=== PATIENT | female | born 1955 | race Caucasian/White ===

== ENCOUNTER 2019-03-25 11:00 | Observation (INO) | payer OTHER, SELFPAY ==
[2019-03-23 08:08] VITALS: BMI 24.5
[2019-03-24] VITALS (15 sets, daily range): BP systolic 87–116; BP diastolic 54–75; PULSE 65–103; RESP 11–20; TEMP 36.2–36.8; O2SAT 94–100; BMI 23.8; BMI 24.5
--- NOTE | 2019-03-24 | PATH_ITS ---
[facility] Accession Number: [id number] . 01 Material submitted: . uterus - UTERUS, CERVIX, BILATERAL FALLOPIAN TUBES AND OVARIES . 02 Diagnosis: Uterus, Cervix, Bilateral Fallopian Tubes and Ovaries, Hysterectomy and Bilateral Salpingo-oophorectomy (Weight 118 grams) and Multiple Detached Nodules (Weight 30 grams): Cervix with no significant histomorphologic abnormality. Endocervix with no significant histomorphologic abnormality. Endometrium with cystic atrophy; negative for glandular hyperplasia, cytologic atypia, and malignancy. Myometrium with multiple intramural leiomyomas (0.3-2.5 cm in greatest dimension) and separate leiomyomas (6.5 cm in aggregate dimension); negative for cytologic atypia or malignancy. Uterine serosa with minute foci of possible involvement by endometriosis. Ovary #1 with no significant histomorphologic abnormality. Ovary #2 with a minute focus of possible involvement by endometriosis and otherwise no significant histomorphologic abnormality. Fallopian tube #1 with small, benign paratubal cysts (1-2 mm in greatest dimension). Fallopian tube #2 with a minute focus of possible involvement by endometriosis and otherwise no significant histomorphologic abnormality. V 03/28/2019 1559 Local . 02 Electronically signed: . Lelia Raman MD, Pathologist NPI- [id number] . 01 Gross description: . Received in formalin, labeled uterus, cervix, bilateral fallopian tubes and ovaries, is a uterus in two pieces (118 grams, 5.2 cm AP, 13.3 cm SI, 7.4 cm ML) with attached ovaries (ovary #1-1.7 x 0.8 x 0.5 cm; ovary #2-2.5 x 1.1 x 0.7 cm) and attached fimbriated fallopian tubes (tube #1: length-4.8 cm, diameter-0.5 cm; tube #2: length-5.1 cm, diameter-0.5 cm) and multiple separate solid firm nodules (30 grams, 6.5 x 5.5 x 2.9 cm in aggregate). The specimen cannot be oriented as to anterior and posterior. The cervix (2.4 cm AP, 2.9 cm ML) has a vaginal cuff (up to 2.2 cm in depth), transverse os and patent endocervical canal. The endometrium (average thickness-0.1 cm) is johnson smooth and flat. The myometrium (thickness-3.1 cm) is johnson-white and contains multiple solid firm white whorled well-circumscribed homogeneous nodules (0.3 x 0.2 x 0.1 cm-2.5 x 2.3 x 1.5 cm). The serosa is pale johnson smooth and shiny. The ovaries have johnson-yellow smooth dull serosa and johnson-white solid parenchyma with corpus albicans identified. The fallopian tubes have johnson-pink smooth shiny serosa and johnson unremarkable lumens. The separate nodules have the same characteristics as the nodules identified in the myometrium. 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 ([id number]) /MRV 03/28/2019 1437 Local . 02 Pathologist provided ICD-10: D25.9 . 02 CPT . 255551 Performed at: 01 [facility] [address] [id number] MD Torrey Pardo MD Phone: [phone] Performed at: 02 [facility] [address] [place], [place] [id number] MD Roxana Cowart MD Phone: [phone]
[2019-03-24] MEDS: LACTATED RINGERS 1,000 ML 42 ML IV (07:26)
--- NOTE | 2019-03-24 07:37 | PM.HP.1 ---
History of Present Illness History of Present Illness Date Patient Seen: 03/24/19 Time Patient Seen: 07:38 Chief complaint: [id number] *OPB* Narrative: Patient is a 64-year-old with uterine prolapse, cystocele, and rectocele She is here for a laparoscopic-assisted vaginal hysterectomy, anterior and posterior repair Patient History Medical History (Updated 03/23/19 @ 12:37 by Olga Fuller RN) Constipation (Acute) Depression (Chronic ~2014) Hearing loss (Chronic ~2016) History of recurrent ear infection (Resolved) Sinus drainage (Acute) Uterine prolapse (Chronic ~2018) Vision disorder (Chronic) Surgical History (Updated 03/23/19 @ 12:37 by Olga Fuller RN) Anesthesia (Resolved) History of ear surgery (Resolved ~1967) History of surgery (Acute ~2016) History of tonsillectomy and adenoidectomy (Resolved ~1966) Schwannoma (Resolved ~11/2016) Family History (Updated 02/01/19 @ 21:00 by Basia Hayes) Father Diabetes mellitus History of heart disease Hypertension Stroke Hip fracture Mother History of heart disease Hypertension Mental health problem Sister Mental health problem Sister Mental health problem Grandfather History of heart disease Grandmother History of heart disease Hypertension Hyperlipidemia Mental health problem Grandfather Liver cancer Grandmother Parkinson's disease Social History household members: spouse Smoking Status: Former smoker alcohol intake: current Family & Social History Family History (Updated 02/01/19 @ 21:00 by Basia Hayes) Father Diabetes mellitus History of heart disease Hypertension Stroke Hip fracture Mother History of heart disease Hypertension Mental health problem Sister Mental health problem Sister Mental health problem Grandfather History of heart disease Grandmother History of heart disease Hypertension Hyperlipidemia Mental health problem Grandfather Liver cancer Grandmother Parkinson's disease Social History: household members spouse Tobacco & Substance use: Tobacco type cigarettes Smoking Status Former smoker alcohol intake current Substance Use Type does not use Meds Home Medications and Allergies Home Medications Medication Instructions Recorded Confirmed Type estradiol [Estrace] 0.5 gram VAG SEEINSTR 03/24/19 03/24/19 History Allergies Allergy/AdvReac Type Severity Reaction Status Date / Time No Known Drug Allergies Allergy Verified 03/24/19 07:05 Exam Vital Signs (past 8 hours): - 03/24/19 07:11 Temperature 97.5 F L Pulse Rate 65 Respiratory Rate 14 Blood Pressure 103/64 Pulse Oximetry 100 Oxygen Delivery Method Room Air Narrative Exam Narrative: HEENT: No thyromegaly, no anterior cervical or supraclavicular lymphadenopathy. Lungs:Clear to auscultation bilaterally, no wheezes. Cardiovascular: Regular rate and rhythm, no murmurs, rubs, or gallops. Abdomen: No scars. No hepatosplenomegaly. No masses palpable. External genitalia: Normal Vagina: Cystocele and rectocele Cervix: Prolapse Bimanual exam: [6 week size prolapsed uterus. No adnexal masses or tenderness. Rectal: Rectocele Assessment & Plan Assessment & Plan narrative: Assessment: 64-year-old with uterine prolapse, cystocele, and rectocele Plan: Laparoscopic-assisted vaginal hysterectomy, bilateral salpingo-oophorectomy, anterior and posterior repair The risks, benefits, and alternatives to the procedure were explained to the patient. The risks including bleeding, infection, injury to the bowel, bladder, ureters, urethra, and rectum. She understands these risks and agrees to proceed. A full par Q was held and consent form was signed. Time Spent With Patient Time with patient: 15-24 minutes
--- NOTE | 2019-03-24 07:40 | PM.PREOP ---
Pre-operative Note Interval Note History & Physical reviewed/Exam performed by Physician: Yes Changes to H&P: No
[2019-03-24] MEDS: CEFAZOLIN 2 GM/100 ML FROZ.PIGGY IV (08:14)
--- NOTE | 2019-03-24 08:44 | SUR.OPER ---
Lithotomy on padded OR bed. [place] Mel Pad Positioner under torso. Head on pillow, arms padded and tucked at sides. Legs secured in padded yellow fins stirrups.
[2019-03-24] MEDS: BUPIVACAINE 0.25% W/ EPI 30 ML VIAL INJ (08:57)
[2019-03-24] MEDS: BUPIVACAINE 0.5% W/ EPI (PF) VIAL 30 ML INJ (08:57)
[2019-03-24] MEDS: LACTATED RINGERS 1,000 ML 100 ML IV ×3 (09:22→21:57)
--- NOTE | 2019-03-24 11:08 | SUR.PHASEI ---
REPORT CALLED TO CHATA ULRICH ON ACUTE CARE FLOOR. PT IN STABLE CONDITION, VSS. PT RESTING IN BED WITH EYES CLOSED, EASILY RESPONDS TO VOICE WHEN SPOKEN TO. PT WILL BE TRANSFERRED TO ACUTE CARE FLOOR.
--- NOTE | 2019-03-24 11:31 | SUR.PHASEI ---
PT TRANSFERRED TO ACUTE CARE FLOOR IN STABLE CONDITION. PT AT BEDSIDE UPON ARRIVAL TO ROOM. BEDSIDE REPORT GIVEN TO CHATA ULRICH AT THAT TIME. TRANSFERRED CARE OF PT TO CHATA ULRICH AT THAT TIME.
[2019-03-24] MEDS: OXYCODONE/ACETAMINOPHEN 5/325 TABLET 2 TAB PO ×3 (13:02→21:51)
--- NOTE | 2019-03-24 13:36 | PC.NURSE ---
Admit Pt arrived from PACU with Nina in place, per pad no drainage, 3 lap sites to lower ABD. 2/3 CDI, R sided with sero sang drainage. A/o at bedside. Ice chips tolerated well. Percocet given for pain. IVF infusing. Call light in reach.
[2019-03-24] MEDS: KETOROLAC 30 MG/ML VIAL IV (16:31)
[2019-03-24] MEDS: DOCUSATE 250 MG CAPSULE PO (21:51)
[2019-03-25] MEDS: OXYCODONE/ACETAMINOPHEN 5/325 TABLET 2 TAB PO ×3 (01:51→10:09)
[2019-03-25] MEDS: KETOROLAC 30 MG/ML VIAL IV ×3 (05:57→12:00)
[2019-03-25 07:03] LABS: Add Manual Diff / Slide Review NO; Basophils Absolute Auto 0 /uL (0-100); Basophils Percent Auto 0.4 % (0-2); Eosinophils Absolute Auto 0 /uL (0-450); Hematocrit 34.8 % (36-46); Hemoglobin 11.8 g/dL (12.0-16.0); Lymphocytes Absolute Auto 2900 /uL (1100-4500); Lymphocytes Percent Auto 29.4 % (25-40); Mean Corpuscular HGB Conc 33.9 % (30-36); Mean Corpuscular Hemoglobin 30.9 PG (26-34); Monocytes Absolute Auto 1000 /uL (0-900); Neutrophils Absolute Auto 5900 /uL (1500-7000); Neutrophils Percent Auto 60.2 % (50-75); Platelet Count 236 X10^3/uL (150-400); Red Blood Cell Count 3.82 X10^6/uL (4.0-5.2); Red Cell Distribution Width 12.7 % (11.6-14.8); White Blood Cell Count 9.9 X10^3/uL (4.5-11.0)
[2019-03-25 08:00] VITALS: BP 102/70; PULSE 83; RESP 16; TEMP 36.9; O2SAT 100
--- NOTE | 2019-03-25 08:07 | P.OP_ITS ---
Operative Date/Time/Diagnoses Date of procedure: 03/24/19 Time of procedure: 11:00 Pre-op diagnosis: Uterine prolapse Cystocele Rectocele Post-op diagnosis: same Procedure & Clinicians Procedure: Procedures Operation Date: 03/24/19 07:45 Actual Procedures Side Surgeon p Laparoscopic Assisted Vag Hysterectomy W/BSO Not Applicable Nesha Varner MD s Colporrhaphy Anterior/Posterior Colporrhaphy Not Applicable Nesha Varner MD Indications: Uterine prolapse Cystocele Revealed Surgeon: Nesha Varner Vice President Of Human Resources: Bk Yancey Anesthesia Type: General Operative Notes Closure Type: primary Specimen(s): left tube & ovary, right tube & ovary and uterus Applied: catheter Estimated blood loss (mL): 75 Blood products transfused: none Procedure in detail: The patient was taken to the operating room where she was placed in the dorsal supine position. After adequate general endotracheal anesthesia was achieved, she was placed in the dorsal lithotomy position, and prepped and draped in the usual sterile fashion. A bivalve speculum was placed into the vagina, and a single-tooth tenaculum was placed on the anterior lip of the cervix. The cervical os was sequentially dilated until the ZUMI uterine manipulator could pass easily into the endometrial cavity. The single-tooth tenaculum was removed from the anterior lip of the cervix, and the bivalve speculum was removed from the vagina. Attention was then turned to the abdomen where 6 mL of half percent Marcaine with epinephrine were injected in the umbilical fold. A 5 mm incision was made. The Verees needle was placed into the peritoneal cavity, and its placement confirmed by aspiration and drop test. The abdominal cavity was insufflated with 4 L of CO2. The varies needle was removed, and a 5 mm trocar was placed without difficulty. Initial inspection of the pelvis revealed the findings noted above. 2 other incisions were made midway between the pubic symphysis and umbilicus 4 cm lateral to the midline. These were 5 mm incisions. 25 mm trochars were placed under direct visualization. The right tube and ovary were grasped with an atraumatic grasper. The infundibulopelvic ligament on the right side was cauterized and cut with plasma kinetic. The round ligament and broad ligament were cauterized and cut. This was continued to the level of the uterine arteries. This was repeated on the patient's left side. The instruments were removed from the abdomen. Attention was then turned to the vagina where the ZUMI uterine manipulator was removed from the uterus. The cervix was grasped with a 4 tooth tenaculum. 10 mL of quarter percent Marcaine with epinephrine were injected circumferentially around the cervix. The cervix was circumscribed. The bladder and rectum were dissected off the lower uterine segment and cervix with an open moistened Ray-El. The peritoneum was entered sharply with the Metzenbaum scissors anteriorly and a [place] placed. The peritoneum was entered posteriorly with the Metzenbaum scissors and the long weighted speculum was placed into the posterior cul-de-sac. The uterosacral cardinal ligament complexes were clamped, transected, and suture ligated with 0 Vicryl. These were attached to a hemostat. The uterine arteries were clamped, transected, and suture ligated with 0 Vicryl. The uterus was handed off for specimen with the tubes and ovaries. The peritoneum was closed with a pursestring suture with 2-0 Vicryl. The vaginal cuff was closed with 0 Vicryl with a series of simple interrupted sutures. The tagged sutures were cut. 2 Allis clamps were placed at the apex of the cystocele. 6 mL of half percent Marcaine with epinephrine were injected and an incision was made with a #10 blade between the 2 Allis clamps. Wide Allis clamps were placed on the midline of the cystocele approximately 3. The mucosa was undermined using the Metzenbaum scissors and the mucosa incised in the midline moving the wide Allis clamps to the edges of the mucosa. The mucosa was dissected off the underlying fascia using an open moistened Ray-El and a #10 blade. The fascia was reapproximated with 0 Vicryl with a series of horizontal mattress sutures. The excess vaginal mucosa was excised. The mucosa was closed using simple interrupted sutures with 2-0 Vicryl including the underlying fascia to close the space. The weighted speculum was removed from the vagina. Allis clamps were placed at the mucocutaneous junction at the introitus. 6 mL of half percent Marcaine with epinephrine were injected. An incision was made with a #10 blade between the 2 Allis clamps, and a triangular piece of skin and underlying subcutaneous tissue was removed. 7 Allis clamps were placed in the midline of the rectocele. 10 mL of half percent Marcaine with epinephrine were injected submucosally. The mucosa was undermined using the Metzenbaum scissors and the mucosa incised in the midline, moving the wide Allis clamps to the mucosal edges. The underlying fascia was dissected off of th mucosa using an open moistened Ray-El and a #10 blade. The fascia was reapproximated using 0 Vicryl with a series of horizontal mattress sutures. The excess vaginal mucosa was excised. The mucosa was closed using a series of simple interrupted sutures with 2-0 Vicryl including the underlying fascia to close the space. On the perineum 0 Vicryl was used to reapproximate the levator muscle. The subcutaneous layer was closed with 2-0 Vicryl. The skin was closed with 3-0 chromic in a subcuticular fashion. Hemostasis was achieved. A Betadine moistened vaginal pack was placed into the vagina. Attention was turned to the abdomen. The laparoscope was placed into the umbilical trocar. A probe was used to move the bowel away from the vaginal cuff. All of the pedicles were examined and were found to be hemostatic. The instruments were removed from the trocars. The CO2 was allowed to escape. The trocars were removed. The incisions were repaired with 4 0 Biosyn in a subcuticular fashion. Steri-Strips, 2 x 2, and op sites were placed. A rectal exam was done and there were no sutures palpable in the rectum. The urine was clear. Sponge, lap, and instrument counts were correct x-2. The patient tolerated the procedure well, was taken to PACU in stable condition. Complications: none Post-operative Condition: stable Disposition: PACU Plan for aftercare: To the acute care unit after recovery
[2019-03-25] MEDS: DOCUSATE 250 MG CAPSULE PO (10:09)
--- NOTE | 2019-03-25 10:16 | CM.IDA ---
Initial DCP Assessment Note: Pt is a 64 yo female, resident of [place]. Pt SDC, OPERATIONS DIRECTOR Procedure. PCP: Hailee Montes De Oca Payer: Jose Met w/pt this morning, explained role. Pt works, indp and active. Pt eager to return home w/assist from her spouse and friend upon DC. No barriers expected to safe return home upon DC JIN Staples Discharge Planning/Care Management CM Discharge Assessment Start: 03/25/19 10:14 Freq: Status: Active Protocol: Document 03/25/19 10:14 DESIREE (Rec: 03/25/19 10:16 DESIREE [id number]) Discharge Planning Assessment Assigned Histologist Technologist JIN Arambula DPOA/Assigned Designee Name Evan Arroyo, spouse Contact Information [phone] Advance Directives? No History Provided By Patient,Medical Record Household Members spouse Type of transporation used prior to Drives own vehicle admit Independent with ADL's Yes Is patient alert and oriented? Yes Barriers to Discharge No Discharge Plan Home Transportation Arrangement Family Referrals Initiated None needed Review Status In Process
--- NOTE | 2019-03-25 11:20 | PC.NURSE ---
Addendum entered by Leonora Garcia R.N. 03/25/19 13:51: Pt received instructions regarding f/u care, Rx medications, s/sx infection, and all d/c education; pt escorted via wheelchair to private vehicle Original Note: At 0900: Pre-void 294, void 300, post-void 0; At 1000: pt reports bloating and pressure to bowels s/p stool softener, BTs present, pt ambulating in room to relieve gas; denies nausea, tolerating general diet; mild to moderate post-op pain improved with PO Percocet; Ls clear, RA, cough/deep breath; 3 lap sites clean and well-approximated, open to air
--- NOTE | 2019-03-26 12:24 | PM.DS.1 ---
History of Present Illness History of Present Illness Date Patient Seen: 03/25/19 Time Patient Seen: 11:30 Chief complaint: [id number] *OPB* Narrative: Patient is a 64-year-old with uterine prolapse, cystocele, and rectocele She is here for a laparoscopic-assisted vaginal hysterectomy, anterior and posterior repair Discharge Providers Provider Date of admission: 03/25/19 11:00 Discharge Date: 03/25/19 Primary care physician: Anders Montes De Oca MD Discharge provider: Nesha Varner MD Summary Hospital Course Discharge Diagnosis: Cystocele Rectocele Uterine prolapse LAVH/BSO Anterior and posterior repair Hospital Course: Patient is a 64-year-old who presented on 03/24/2019 for a scheduled LAVH/BSO/anterior and posterior repair She underwent these procedures without complication. On postop day # 1 her catheter and vaginal packing were removed. She was able to void with no significant postvoid residual volumes. Her pain was well controlled. She was ambulating independently. She was tolerating a diet. No nausea or vomiting. Status at Discharge Cognitive/behavioral status at discharge: oriented Functional status at discharge: independent ambulation Overall status at discharge: patient is progressing back to baseline Time Spent with Patient Time spent: Less than 30 minutes Exam Vital Signs (past 8 hours): Oxygen Delivery Method Room Air Oxygen Flow Rate 0 Narrative Exam Narrative: Generally: Patient is sitting up in bed, no acute distress Lungs: Clear to auscultation bilaterally Cardiovascular: Regular rate and rhythm Abdomen: Soft, flat, good bowel sounds Incisions: Clean dry and intact with op sites Perineum: Intact Objective Labs Result Diagrams: 03/25/19 06:27 Discharge Plan Discharge Plan Patient Disposition: Home Discharge comment: Call with fever, chills, redness or drainage around the incisions or bleeding vaginally more than spotty to light Ibuprofen as needed Discharge Med Rec/Prescriptions Prescriptions: New oxycodone-acetaminophen [Percocet] 5-325 mg tablet 1 tab PO Q4-6H PRN (Reason: pain) Qty: 30 RF: 0 Discontinued estradiol [Estrace] 0.01 % (0.1 mg/gram) cream 0.5 gram VAG SEEINSTR RF: 0 Follow up/Referrals: Nesha Varner MD [Physician] - 04/11/19 Anders Montes De Oca MD [Primary Care Provider] - Provider Discharge Instructions Diet: Regular Activity: No intercourse Skin/Wound/Dressing Care Report to your healthcare provider any signs of infection, such as:: chills, fever, increased pain, unusual drainage and unusual redness Dressing: Remove outer plastic dressings and guaze after first shower Visit Report/Discharge Packet Instructions: Cystocele and Rectocele Repair, DI for Hysterectomy, DI for Laparoscopy Stand Alone Forms: Surgery Discharge Discharge Data Primary Care Provider: Anders Montes De Oca Attending Provider: Nesha Varner Admit Date/Time: 03/25/19 11:00 Discharges patient from system. Discharge Date/Time: 03/25/19 13:15
== END 2019-03-25 13:15 | disposition home or self-care (01) ==
LOC: OR 13:45
PROVIDERS: Admitting Provider Obstetrics & Gynecology; PCP Family Medicine; Visit Provider Obstetrics & Gynecology
PROC: 0UT9FZZ Resection of Uterus, Via Natural or Artificial Opening With Percutaneous Endoscopic Assistance (ICD-10-PCS; CPT 58552; principal; 2019-03-24 07:45)
PROC: (CPT 58552; 2019-03-24 07:45)
DX: D25.9 Leiomyoma of uterus, unspecified (principal); N81.4 Uterovaginal prolapse, unspecified; N81.9 Female genital prolapse, unspecified
CPT/HCPCS: 58552; 57260; 36415; 85025; G0378; J0690; J1100; J1170; J1885; J2250; J2405; J2704; J3010

== ENCOUNTER → 2019-05-10 15:38 | Outpatient (CLI) | payer OTHER, SELFPAY ==
[2019-03-24 12:42] VITALS: BMI 24.5
== END ==
PROVIDERS: PCP Internal Medicine
DX: Z23 Encounter for immunization (principal)
CPT/HCPCS: 90471; 90686

== ENCOUNTER → 2019-08-09 11:55 | Outpatient (CLI) | payer OTHER, SELFPAY ==
[2019-03-24 12:42] VITALS: BMI 24.5
--- NOTE | 2019-08-09 | DI.MG.S_ITS ---
BILATERAL DIGITAL SCREENING MAMMOGRAM 3D/2D WITH CAD: 08/09/2019 Comparison is made to exams dated: 03/18/2017 mammogram, 01/30/2016 mammogram, and 12/10/2012 mammogram - [facility]. There are scattered fibroglandular elements in both breasts. Current study was also evaluated with a Computer Aided Detection (CAD) system. No significant masses, calcifications, or other findings are seen in either breast. There has been no significant interval change. IMPRESSION: NEGATIVE There is no mammographic evidence of malignancy. A 1 year screening mammogram is recommended. This exam was interpreted at Station ID: [id number]. NOTE: For mammograms, a report in lay terms will be sent to the patient. Approximately 15% of breast malignancies will not be visualized mammographically. In the management of a palpable breast mass, a negative mammogram must not discourage biopsy of a clinically suspicious lesion. Electronically Signed By: Jacqueline castro/radha:08/09/2019 16:55:44 letter sent: Normal Exam ACR BI-RADS Category 1: Negative 3341F
== END ==
PROVIDERS: PCP Internal Medicine; Referring Provider Internal Medicine; Visit Provider Internal Medicine
DX: Z12.31 Encounter for screening mammogram for malignant neoplasm of breast (principal)
CPT/HCPCS: 77063; 77067

== ENCOUNTER → 2020-01-13 07:34 | Outpatient (CLI) | payer OTHER, SELFPAY ==
[2019-03-24 12:42] VITALS: BMI 24.5
--- NOTE | 2020-01-13 | DI.MRI.S_ITS ---
PROCEDURE: MR HEAD/BRAIN WO/W CON INDICATIONS: Localized swelling, mass and lump, head. The patient provides a clinical history of schwannoma removal on the left approximately 3 years ago, and preoperative MR or CT scanning is not available for review. Postoperative CT and MR scanning from 11/16/17 has been reviewed. TECHNIQUE: Noncontrast axial T1 spin echo, axial T2 fast spin echo, sagittal and axial FLAIR, coronal T2 fast spin echo, axial gradient echo, axial diffusion and ADC through the brain. After the administration of contrast, axial and coronal 3D VIBE or T1 spin echo with fat saturation through the brain. COMPARISON: [facility], MR, MR BRAIN WITH/WITHOUT CONTRAST, 11/16/2017, 12:29. [facility], CT, CT HEAD WITHOUT CONTRAST, 11/16/2017, 9:55. FINDINGS: Image quality: Excellent. CSF Spaces: Basal cisterns are patent. No extra-axial fluid collections. Ventricles are normal in size and shape. Brain: No midline shift. No intracranial bleeds or masses. No abnormal intracranial enhancement. The brainstem appears normal. Diffusion-weighted images demonstrate no acute ischemic insults. No chronic ischemic insults. Normal intravascular flow voids are present. There are postoperative changes of occipital craniotomy on the left with mild associated volume loss. This has been previously present. No recurrent mass lesion is found. Skull and face: Calvarial marrow is normal in signal. Orbits appear normal. There is mild susceptibility artifact in the area of prior left occipital craniotomy, but no cutaneous mass or abnormal fluid collection is associated. Sinuses: Sinuses and mastoids appear clear. IMPRESSION: Prior occipital craniotomy on the left, reportedly approximately 3 years ago. No definite change from the MR scanning that was performed 11/16/17 open (after surgical intervention). No recurrent mass lesion in this area is found. Mild volume loss at the left cerebellum previously present. Dermatology consultation may be warranted depending on the clinical status. Dictated by: Peter Swann M.D. on 01/13/2020 at 9:15 Approved by: Peter Swann M.D. on 01/13/2020 at 9:24
== END ==
PROVIDERS: PCP Internal Medicine; Referring Provider Internal Medicine; Visit Provider Internal Medicine
DX: R22.0 Localized swelling, mass and lump, head (principal); Z86.018 Personal history of other benign neoplasm
CPT/HCPCS: 70553; A9579

== ENCOUNTER → 2020-04-10 | Outpatient (CLI) | payer OTHER, SELFPAY ==
[2019-03-24 12:42] VITALS: BMI 24.5
== END ==
PROVIDERS: PCP Internal Medicine; Referring Provider Internal Medicine; Visit Provider Internal Medicine
DX: Z23 Encounter for immunization (principal)
CPT/HCPCS: 90471; 90686

== ENCOUNTER → 2020-06-04 06:55 | Outpatient (CLI) | payer OTHER, SELFPAY ==
[2019-03-24 12:42] VITALS: BMI 24.5
[2020-06-04 09:33] LABS: Add Manual Diff / Slide Review NO; Basophils Absolute Auto 0 /uL (0-100); Basophils Percent Auto 0.6 % (0-2); Eosinophils Absolute Auto 0 /uL (0-450); Eosinophils Percent Auto 0.6 % (2-4); Hematocrit 36.6 % (36-46); Hemoglobin 12.4 g/dL (12.0-16.0); Lymphocytes Absolute Auto 1500 /uL (1100-4500); Lymphocytes Percent Auto 31.6 % (25-40); Mean Corpuscular HGB Conc 33.9 % (30-36); Mean Corpuscular Hemoglobin 31.5 PG (26-34); Mean Corpuscular Volume 92.8 fL (80-100); Monocytes Absolute Auto 500 /uL (0-900); Monocytes Percent Auto 10.8 % (3-14); Neutrophils Absolute Auto 2700 /uL (1500-7000); Neutrophils Percent Auto 56.4 % (50-75); Platelet Count 261 X10^3/uL (150-400); Red Blood Cell Count 3.95 X10^6/uL (4.0-5.2); Red Cell Distribution Width 12.5 % (11.6-14.8); White Blood Cell Count 4.8 X10^3/uL (4.5-11.0)
[2020-06-04 09:42] LABS: Alanine Aminotransferase 23 IU/L (<35); Albumin 4.2 g/dL (3.5-5.0); Albumin Globulin Ratio 1.6 (1.0-2.8); Alkaline Phosphatase 57 U/L (38-126); Aspartate Aminotransferase 24 IU/L (14-36); BUN Creatinine Ratio 19.4 (6-22); Bilirubin Total 0.4 mg/dL (0.2-1.3); Blood Urea Nitrogen 13 mg/dL (7-17); Calcium 9.2 mg/dL (8.4-10.2); Carbon Dioxide 32 mmol/L (22-32); Chloride 99 mmol/L (98-107); Cholesterol 223 mg/dL (140-199); Estimated Glomerular Filt Rate > 60.0 mL/min (>60); Globulin 2.7 g/dL (1.7-4.1); Glucose 101 mg/dL (80-110); HEMOLYSIS < 15 (0-50); Potassium 3.6 mmol/L (3.4-5.1); Sodium 134 mmol/L (137-145); Total Protein 6.9 g/dL (6.3-8.2); Triglycerides 104 mg/dL (35-150)
[2020-06-04 09:51] LABS: HDL Cholesterol 132 mg/dL (40-60); LDL Cholesterol Calculated 70 mg/dL (<100)
[2020-06-04 16:02] LABS: Hep C Virus Ab w/Reflex Quant NEGATIVE s/c (NEGATIVE)
[2020-06-04 16:13] LABS: COVID19 -Nasal RAPID Negative (Negative)
== END ==
PROVIDERS: Nurse Practitioner; PCP Registered Nurse; Referring Provider Registered Nurse; Visit Provider Registered Nurse
DX: Z00.00 Encounter for general adult medical examination without abnormal findings (principal); Z11.59 Encounter for screening for other viral diseases; R06.02 Shortness of breath; R53.81 Other malaise; R53.83 Other fatigue; Z20.828 Contact with and (suspected) exposure to other viral communicable diseases
CPT/HCPCS: 36415; 80053; 80061; 85025; 86803; 87635

== ENCOUNTER → 2020-06-13 14:53 | Outpatient (CLI) | payer OTHER, SELFPAY ==
[2019-03-24 12:42] VITALS: BMI 24.5
== END ==
PROVIDERS: PCP Registered Nurse; Referring Provider Registered Nurse; Visit Provider Registered Nurse
DX: M85.88 Other specified disorders of bone density and structure, other site (principal); Z78.0 Asymptomatic menopausal state
CPT/HCPCS: 77080

== ENCOUNTER → 2020-06-21 15:07 | Outpatient (CLI) | payer OTHER, SELFPAY ==
[2019-03-24 12:42] VITALS: BMI 24.5
[2020-06-21] MEDS: COVID-19 VACC(MODERNA-1)/PF 100 MCG/0.5 ML VIAL IM (15:19)
== END ==
PROVIDERS: PCP Registered Nurse; Visit Provider Internal Medicine
DX: Z23 Encounter for immunization (principal)
CPT/HCPCS: 0011A; 91301

== ENCOUNTER → 2020-07-20 12:33 | Outpatient (CLI) | payer OTHER, SELFPAY ==
[2019-03-24 12:42] VITALS: BMI 24.5
[2020-07-20] MEDS: COVID-19 VACC #2, MRNA(MOD) 100 MCG/0.5 ML VIAL IM (12:38)
== END ==
PROVIDERS: PCP Registered Nurse; Visit Provider Internal Medicine
DX: Z23 Encounter for immunization (principal)
CPT/HCPCS: 0012A; 91301

== ENCOUNTER → 2020-08-14 16:44 | Outpatient (CLI) | payer OTHER, SELFPAY ==
[2019-03-24 12:42] VITALS: BMI 24.5
--- NOTE | 2020-08-14 16:47 | DI.MG.S_ITS ---
BILATERAL DIGITAL SCREENING MAMMOGRAM 3D/2D WITH CAD: 08/14/2020 CLINICAL: Routine screening. Comparison is made to exams dated: 08/09/2019 mammogram - [facility], 03/18/2017 mammogram, and 01/30/2016 mammogram - [facility]. There are scattered fibroglandular elements in both breasts. Current study was also evaluated with a Computer Aided Detection (CAD) system. No significant masses, calcifications, or other findings are seen in either breast. There has been no significant interval change. IMPRESSION: NEGATIVE There is no mammographic evidence of malignancy. A 1 year screening mammogram is recommended. This exam was interpreted at Station ID: [id number]. NOTE: For mammograms, a report in lay terms will be sent to the patient. Approximately 15% of breast malignancies will not be visualized mammographically. In the management of a palpable breast mass, a negative mammogram must not discourage biopsy of a clinically suspicious lesion. Electronically Signed By: Matt parra/radha:08/15/2020 08:04:59 letter sent: Normal Exam ACR BI-RADS Category 1: Negative 3341F
== END ==
PROVIDERS: PCP Registered Nurse; Referring Provider Registered Nurse; Visit Provider Registered Nurse
DX: Z12.31 Encounter for screening mammogram for malignant neoplasm of breast (principal)
CPT/HCPCS: 77063; 77067

== ENCOUNTER → 2020-12-11 07:17 | Outpatient (CLI) | payer OTHER, SELFPAY ==
[2019-03-24 12:42] VITALS: BMI 24.5
[2020-12-11 08:49] LABS: Alanine Aminotransferase 25 IU/L (<35); Albumin 4.4 g/dL (3.5-5.0); Albumin Globulin Ratio 1.5 (1.0-2.8); Alkaline Phosphatase 59 U/L (38-126); Aspartate Aminotransferase 35 IU/L (14-36); BUN Creatinine Ratio 30.9 (6-22); Bilirubin Total 0.5 mg/dL (0.2-1.3); Blood Urea Nitrogen 21 mg/dL (7-17); Calcium 9.5 mg/dL (8.4-10.2); Carbon Dioxide 25 mmol/L (22-32); Chloride 106 mmol/L (98-107); Cholesterol 269 mg/dL (140-199); Estimated Glomerular Filt Rate > 60.0 mL/min (>60); Glucose 94 mg/dL (80-110); HEMOLYSIS < 15 (0-50); Sodium 139 mmol/L (137-145); Total Protein 7.4 g/dL (6.3-8.2); Triglycerides 55 mg/dL (35-150)
[2020-12-11 08:58] LABS: HDL Cholesterol 133 mg/dL (40-60); LDL Cholesterol Calculated 125 mg/dL (<100)
== END ==
PROVIDERS: PCP Registered Nurse; Referring Provider Registered Nurse; Visit Provider Registered Nurse
DX: Z00.00 Encounter for general adult medical examination without abnormal findings (principal); F32.9 Major depressive disorder, single episode, unspecified; F41.9 Anxiety disorder, unspecified
CPT/HCPCS: 36415; 80053; 80061